=== PATIENT | male | born 1995 | race Caucasian/White ===

== ENCOUNTER 2022-10-19 08:58 | Emergency (ER) | payer OTHER, SELFPAY ==
--- NOTE | ~2022-10-19 | XR_ITS ---
EXAMINATION: XR SHOULDER, LEFT CLINICAL INFORMATION: Unable to move arm COMPARISON: None TECHNIQUE: Three views of the left shoulder. FINDINGS: The bones and soft tissues are normal. No fracture. Glenohumeral and acromioclavicular alignment is anatomic with normal joint space. No abnormal soft tissue calcifications. XR/XR shoulder LT min 2V IMPRESSION: Normal left shoulder.
[2022-10-19 09:05] VITALS: BP 136/84; PULSE 75; RESP 16; TEMP 36.4; O2SAT 100; BMI 25.7
--- NOTE | 2022-10-19 09:57 | ED.UPPEXIN ---
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 He started to slip and tried to catch himself with his arm and he heard a ?crack? to his left shoulder and since then has been having pain. Denies actual fall, head injury, neck injury, any paresthesias, any other injuries complaints or concerns at this time. MD complaint: injury to: left and shoulder Onset (ago): hour(s) (Prior to arrival) Other Extremity Injury: left: shoulder Other injuries: none Place: outdoors Severity: moderate Relieving factors: none Exacerbating factors: movement of extremity Context: other (Near fall) Associated symptoms: denies other symptoms Related Data Previous Rx's Medication Instructions Recorded cyclobenzaprine 10 mg tablet 10 mg PO Q8H #14 tabs 10/19/22 naproxen 500 mg tablet 500 mg PO BID PRN pain #14 tabs 10/19/22 Allergies Allergy/AdvReac Type Severity Reaction Status Date / Time Penicillins [PCN] AdvReac Rash Verified 10/19/22 09:07 Review of Systems Review of Systems: Constitutional : No Weight loss, No Fever, No Chills, No Night Sweats, No Fatigue, No Malaise ENT/Mouth : No Hearing loss, No Ear Pain, No Nasal Congestion, No Sinus Pain, No Hoarseness, No sore throat, No Rhinorrhea, No Swallowing Difficulty Eyes: No Eye Pain, No Swelling, No Redness, No Foreign Body, No Discharge, No Vision Changes Cardiovascular : No Chest Pain, No SOB, No Dyspnea on Exertion, No Orthopnea, No Edema, No Palpitations Respiratory : No Cough, No Sputum, No Wheezing, No Smoke Exposure, No Dyspnea Gastrointestinal : No Nausea, No Vomiting, No Diarrhea, No Constipation, No abdominal Pain, No Hematochezia, No Melena Genitourinary : no irregular bleeding, No Dysuria, No Urinary Frequency, No Hematuria, No Urinary Incontinence, No Urgency, No Flank Pain, No Urinary Flow Changes, No Hesitancy Musculoskeletal : + left shoulder joint pain, No Myalgias, No Joint Swelling Skin : No Skin Lesions, No rash Neuro : No Weakness, No Numbness, No Paresthesias, No Loss of Consciousness, No Dizziness, No Headache Psych : No Anxiety/Panic, No Depression, No SI/HI/AH/VH, No Social Issues, Heme/Lymph: No Bruising, No Bleeding,No Lymphadenopathy Endocrine : No Polyuria, No Polydipsia, No Temperature Intolerance Yes all other systems are reviewed and are negative [facility] Past Medical History Attestation statement: The following information was validated with the patient. Source: old records reviewed and nursing notes reviewed Social History Social History Advance Directives: No Advance Directives Information Provided: Yes Physical Exam Vital Signs: Vital Signs: Last Vital Signs Temp 97.5 F 10/19/22 09:05 Pulse 75 10/19/22 09:05 Resp 16 10/19/22 09:05 BP 136/84 10/19/22 09:05 Pulse Ox 100 10/19/22 09:05 O2 Del Method 10/19/22 09:05 BMI result Body Mass Index 25.7 vital signs have been reviewed as normal and appeared to be correct. Blood pressure normal Heart rate normal. Respiration rate normal. Temperature normal. Oxygen saturation normal. Appearance: Alert. Oriented X3. No acute distress. Head: Normal external exam. Normocephalic. Atraumatic. Eyes: PERRLA. EOMI. Conjunctiva and sclera normal. Eyelids normal. ENT: Pharynx normal. Uvula midline. Moist mucous membranes. Neck: Normal inspection. Neck supple. FROM. CVS: Normal heart rate and rhythm. Respiratory: No respiratory distress. Painless inspiration. Skin: Skin warm and dry. Normal skin color. Normal skin turgor. No rashes/lesions/lacerations noted. Extremities: Patient with tenderness palpation to the left shoulder at the AC joint and the posterior scapula expect. No clavicle tenderness noted. Patient has full range of motion of the left shoulder joint although reports pain with range of motion. No obvious ligamentous or tendon injury noted. No obvious deformities are noted. No tenderness to the elbow joint or hand and wrist. Otherwise all other extremities exhibit normal range of motion nontender. Neuro: Oriented X 3. No motor deficit. No sensory deficit. Reflexes normal. Normal steady gait. No focal neuro deficits noted. Vascular: + radial pulses/+ 2 distal pedal pulses/+2 dorsalis pedis b/l. Normal cap refill. No cyanosis noted to upper extremity nails and lower extremity toes nails. 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 He started to slip and tried to catch himself with his arm and he heard a ?crack? to his left shoulder and since then has been having pain. Denies actual fall, head injury, neck injury, any paresthesias, any other injuries complaints or concerns at this time. Xray negative for any acute processes. Therefore not consistent with fracture. Not consistent with dislocation. Not consistent muscle rupture. Vasculature is intact. Will d/c home c symptomatic treatment instructions return if any new or worsening symptoms and to follow-up with PCP or orthopedics if symptoms persist for longer than 2-3 weeks. Patient and significant other at bedside understand agree this plan. Medical Decision Making Independent Interpretation I performed an independent interpretation of an: Plain X-Ray (I reviewed the x-rays myself and discussed this with the patient his spouse he understands the results) Radiology Impression Discussion of test interpretation with radiology: I have reviewed the radiologist's reading. (I agree) Radiologist Impression: EXAMINATION: XR SHOULDER, LEFT CLINICAL INFORMATION: Unable to move arm? COMPARISON: None? TECHNIQUE: Three views of the left shoulder. FINDINGS: The bones and soft tissues are normal. No fracture. Glenohumeral and acromioclavicular alignment is anatomic with normal joint space. No abnormal soft tissue calcifications.? XR/XR shoulder LT min 2V IMPRESSION: Normal left shoulder. Independent Historian Clinical information obtained from an independent historian. History obtained from or confirmed by: Spouse Prescription Management I considered prescription management with: Pain Medication Discharge Plan Discharge Clinical Impression: Sprain of left shoulder, Work related injury Patient Disposition: Home, Self-Care Instructions: Shoulder Sprain (ED), Return to Work Instructions (ED) Prescriptions: New naproxen 500 mg tablet 500 mg PO BID PRN (Reason: pain) Qty: 14 0RF cyclobenzaprine 10 mg tablet 10 mg PO Q8H Qty: 14 0RF Referrals: Physician,None [Primary Care Provider] - 3 days (your pcp as needed) Stand Alone Forms: Work/School Release
[2022-10-19] MEDS: Cyclobenzaprine HCl 10 MG TABLET PO (10:09)
[2022-10-19] MEDS: NaPROXEN 500 MG TABLET PO (10:15)
== END 2022-10-19 10:16 | disposition home or self-care (01) ==
PROVIDERS: Emergency Provider Emergency Medicine Emergency Medical Services
DX: S43.52XA Sprain of left acromioclavicular joint, initial encounter (principal); M25.512 Pain in left shoulder; W01.0XXA Fall on same level from slipping, tripping and stumbling without subsequent striking against object, initial encounter; Y93.9 Activity, unspecified; Y92.89 Other specified places as the place of occurrence of the external cause; Y99.9 Unspecified external cause status
CPT/HCPCS: 73030; 99283